=== PATIENT | female | born 1960 | race Caucasian/White ===

== ENCOUNTER 2016-09-09 11:22 | Emergency (ER) | payer MEDICARE, BC ==
[~2016-09-09] VITALS: Ht 172.7 cm; Wt 93.0 kg
[~2016-09-09 11:22] MED LIST: ASPI1TAB69 PO
[2016-09-09 11:25] VITALS: PULSE 203; RESP 20; TEMP 98.1; O2SAT 97
[2016-09-09 11:28] VITALS: BP 163/85; PULSE 185; RESP 30; TEMP 97.7; O2SAT 95
[2016-09-09] MEDS ORDERED: ADENOSINE IV SOLN 3 MG/ML 2 ML VIAL ONE ×2 (11:29→11:31)
[2016-09-09 11:41] VITALS: BP 163/85; PULSE 104; RESP 27; O2SAT 96
[2016-09-09] MEDS ORDERED: ASPI325T PO (11:43)
--- NOTE | 2016-09-09 11:43 | PD ---
HPI . Palpitations Chief Complaint: Cardiac Complaint Time Seen by Provider: 11:37 Travel History International Travel<30 days: No Contact w/Intl Traveler<30days: No History of Present Illness HPI Patient presents ambulatory with a 35 minute history of rapid heart rate. She states that it is associated with dizziness, nausea and shortness of breath. She reports a positive previous similar history was successfully treated with a single dose of adenosine. She has had no further episodes. Therefore, she is not maintained on a rate controlling medication. PFSH Past Medical History Anxiety: No Depression: No Heart Rhythm Problems: Yes Cancer: No Cardiovascular Problems: Yes (SVT) Diminished Hearing: No Endocrine: No Genitourinary: Yes (LMP 01/17/06) Immune Disorder: No Musculoskeletal: No Neurologic: No Psychiatric: Yes Reproductive: No Respiratory: No Pancreatitis: Yes (UNKOWN ETIOLOGY) Menopausal: Yes : 2 Para: 2 Tubal Ligation: Yes Past Surgical History Abdominal Surgery: Yes (RESECTION OF LIVER, CHOLISISECTOMY, ERCP) Cholecystectomy: Yes Other Surgery: Yes (LIVER RESECTION FOR TUMOR) Social History Alcohol Use: Yes (occasional) Tobacco Use: No Substance Use: No Allergies-Medications (Allergen,Severity, Reaction): Coded Allergies: Metoprolol (Verified Allergy, Severe, headache, 09/09/16) Ambien (Verified Allergy, Mild, ALTERED MENTAL STATUS, 09/09/16) Ativan (Verified Allergy, Mild, ALTERED MENTAL STATUS, 09/09/16) Nubain (Verified Allergy, Mild, ALTERED MENTAL STATUS, 09/09/16) Reported Meds & Prescriptions Reported Meds & Active Scripts Active Reported Aspirin 325 Mg Tab 325 Mg PO DAILY Review of Systems Except as stated in HPI: all other systems reviewed are Neg General / Constitutional: No: Fever, Chills HENT: Positive: Lightheadedness Cardiovascular: Positive: Chest Pain or Discomfort, Palpitations, Tachycardia Respiratory: Positive: Shortness of Breath Gastrointestinal: Positive: Nausea, No: Vomiting Physical Exam Narrative GENERAL: Somewhat anxious appearing woman who is awake and alert and fully oriented. SKIN: Warm and dry. HEAD: Atraumatic. Normocephalic. EYES: Pupils equal and round. ENT: No nasal bleeding or discharge. Mucous membranes pink and moist. NECK: Trachea midline. Neck is supple. CARDIOVASCULAR: Regular rhythm. Rapid rate at about 185. Narrow complex on the monitor. RESPIRATORY: No accessory muscle use. GASTROINTESTINAL: Abdomen soft, non-tender, nondistended. MUSCULOSKELETAL: No obvious deformities. No edema. NEUROLOGICAL: Awake and alert. No obvious cranial nerve deficits. Motor grossly within normal limits. Normal speech. PSYCHIATRIC: Appropriate mood and affect; insight and judgment normal. Data Data Last Documented VS Vital Signs Date Time Temp Pulse Resp B/P Pulse Ox O2 Delivery O2 Flow Rate FiO2 09/09/16 12:34 101 12 138/70 98 Nasal Cannula 2 09/09/16 11:28 97.7 Orders Adenosine Inj (Adenocard Inj) (09/09/16 11:29) Adenosine Inj (Adenocard Inj) (09/09/16 11:31) Basic Metabolic Panel (Bmp) (09/09/16 11:43) Ckmb (Isoenzyme) Profile (09/09/16 11:43) Complete Blood Count With Diff (09/09/16 11:43) Troponin I (09/09/16 11:43) Ecg Monitoring (09/09/16 11:43) Bilateral Bp Monitoring (09/09/16 11:43) Iv Access Insert/Monitor (09/09/16 11:43) Oximetry (09/09/16 11:43) Oxygen Administration (09/09/16 11:43) Sodium Chloride 0.9% Flush (Ns Flush) (09/09/16 11:45) Electrocardiogram (09/09/16 11:30) Electrocardiogram (09/09/16 11:33) CKMB (09/09/16 12:00) CKMB% (09/09/16 12:00) Labs Laboratory Tests Test 09/09/16 12:00 White Blood Count 10.2 TH/MM3 Red Blood Count 5.43 MIL/MM3 Hemoglobin 15.6 GM/DL Hematocrit 46.3 % Mean Corpuscular Volume 85.2 FL Mean Corpuscular Hemoglobin 28.7 PG Mean Corpuscular Hemoglobin 33.6 % Concent Red Cell Distribution Width 14.0 % Platelet Count 307 TH/MM3 Mean Platelet Volume 7.4 FL Neutrophils (%) (Auto) 53.6 % Lymphocytes (%) (Auto) 40.6 % Monocytes (%) (Auto) 4.2 % Eosinophils (%) (Auto) 0.6 % Basophils (%) (Auto) 1.0 % Neutrophils # (Auto) 5.5 TH/MM3 Lymphocytes # (Auto) 4.1 TH/MM3 Monocytes # (Auto) 0.4 TH/MM3 Eosinophils # (Auto) 0.1 TH/MM3 Basophils # (Auto) 0.1 TH/MM3 CBC Comment DIFF FINAL Differential Comment Sodium Level 137 MEQ/L Potassium Level 4.6 MEQ/L Chloride Level 106 MEQ/L Carbon Dioxide Level 20.3 MEQ/L Anion Gap 11 MEQ/L Blood Urea Nitrogen 10 MG/DL Creatinine 1.06 MG/DL Estimat Glomerular Filtration 53 ML/MIN Rate Random Glucose 250 MG/DL Calcium Level 8.9 MG/DL Total Creatine Kinase 103 U/L Creatine Kinase MB 0.8 NG/ML Troponin I LESS THAN 0.02 NG/ML MDM Medical Decision Making Medical Screen Exam Complete: Yes Emergency Medical Condition: Yes Interpretation(s) Initial EKG shows SVT at 194. Repeat EKG following chemical cardioversion showed a sinus rhythm with a ventricular rate of 115. She has some associated PACs. No ST segment elevation or depression. Differential Diagnosis Differential diagnosis of palpitations includes but is not limited to anxiety, SVT, aVF with RVR, VT, sinus tachycardia Narrative Course Patient presents with a rapid heart rate. Her rate was quickly controlled with a single dose of adenosine, 6 milligrams. CBC is remarkable for an H&H of 15.6 and 46.3. White blood count is normal at 10.2. Cardiac enzymes are negative. She has remained asymptomatic since she was converted with adenosine. Critical Care Narrative Aggregate critical care time was 30 minutes. Time to perform other separately billable procedures was not included in the critical care time. My time did not include minutes spent treating any other patients simultaneously or on activities that did not directly contribute to the patient's treatment. The services I provided to this patient were to treat and/or prevent clinically significant deterioration that could result in: Degeneration in her cardiac rhythm I provided critical care services requiring my management, as noted below: Chart data review, documentation time, medication orders and management, vital sign assessments/reviewing monitor data, ordering and reviewing lab tests, ordering and interpreting/reviewing x-rays and diagnostic studies, care of the patient and discussion of the patient with the admitting physicians. Diagnosis Primary Impression: SVT (supraventricular tachycardia) Referrals: Clement Maradiaga MD 1 week Patient Instructions: General Instructions, Supraventricular Tachycardia (ED) Disposition: 01 DISCHARGE HOME Condition: Stable Oeters,Randa Elsa MD Sep 09, 2016 11:43
[2016-09-09] MEDS ORDERED: SODIUM CHLORIDE 0.9% FLUSH 5 ML FLUSH IVF PRN (11:45)
[2016-09-09 12:14] LABS: AUTOMATED NEUTROPHIL # 5.5 TH/MM3 (1.8-7.7); BASOPHIL # 0.1 TH/MM3 (0-0.2); EOSINOPHIL # 0.1 TH/MM3 (0-0.4); EOSINOPHIL % 0.6 % (0.0-4.0); HEMATOCRIT 46.3 % (35.0-46.0); HEMO FLAGS DIFF FINAL; LYMPH % 40.6 % (9.0-44.0); LYMPHOCYTE # 4.1 TH/MM3 (1.0-4.8); MEAN CELL VOLUME 85.2 FL (80.0-100.0); MEAN CORPUSCULAR HEMOGLOBIN 28.7 PG (27.0-34.0); MEAN CORPUSCULAR HGB CONC 33.6 % (32.0-36.0); MONO % 4.2 % (0.0-8.0); NEUT % 53.6 % (16.0-70.0); PLATELET COUNT 307 TH/MM3 (150-450); RED BLOOD COUNT 5.43 MIL/MM3 (4.00-5.30); WHITE BLOOD COUNT 10.2 TH/MM3 (4.0-11.0)
[2016-09-09 12:34] VITALS: BP 138/70; PULSE 101; RESP 12; O2SAT 98
[2016-09-09 12:37] LABS: ANION GAP 11 MEQ/L (5-15); BICARBONATE 20.3 MEQ/L (21.0-32.0); BLOOD UREA NITROGEN 10 MG/DL (7-18); CHLORIDE 106 MEQ/L (98-107); CREATINE KINASE 103 U/L (26-192); GLOMERULAR FILTRATION RATE 53 ML/MIN (>89); SODIUM (NA) 137 MEQ/L (136-145)
[2016-09-09 12:39] LABS: POTASSIUM 4.6 MEQ/L (3.5-5.1)
[2016-09-09 12:57] LABS: CKMB 0.8 NG/ML (0.5-3.6)
--- NOTE | 2016-09-09 17:34 | EKG ---
Date Performed: 09/09/2016 Time Performed: 11:30:59 PTAGE: 56 years EKG: SUPRAVENTRICULAR TACHYCARDIA NONSPECIFIC ST & T-WAVE ABNORMALITY When compared to previous tracing, supraventricular tachycardia Has replaced Sinus rhythm . Likely rate related ST changes are new. ABNORMAL ECG PREVIOUS TRACING : 03/03/2016 07.34 DOCTOR: Maximo Espinosa Interpretating Date/Time 09/09/2016 17:33:21
--- NOTE | 2016-09-09 17:40 | EKG ---
Date Performed: 09/09/2016 Time Performed: 11:33:03 PTAGE: 56 years EKG: SINUS TACHYCARDIA WITH FREQUENT SUPRAVENTRICULAR PREMATURE COMPLEXES NONSPECIFIC T-WAVE ABN ORMALITY Rhythm does appear to be sinus tachycardia with surface ectopy Though also baseline artifact , given previous EKG's Supraventricular tachycardia would recomment repeat EKG with a Lead Manufacturing Technician baseli ne to exclude atrial fibrillation. Also noted was electro cardioversion which took place between This tracing and the previous tracing. ABNORMAL ECG PREVIOUS TRACING : 09/09/2016 11.30.59 DOCTOR: Maximo Espinosa Interpretating Date/Time 09/09/2016 17:39:51
== END 2016-09-09 13:31 | disposition home or self-care (01) ==
LOC: NEPA 11:22
DX: I47.1 Supraventricular tachycardia (principal); R06.02 Shortness of breath; R42 Dizziness and giddiness
CPT/HCPCS: 80048; 82550; 82552; 84484; 85025; 93005; 96374; 99291; J0153

== ENCOUNTER → 2017-07-13 | Outpatient (CLI) | payer MEDICARE, BC ==
[~2017-07-13] MED LIST changes: +ASPI-183 PO; -ASPI1TAB69 PO
[2017-07-13 09:50] LABS: AUTOMATED NEUTROPHIL # 3.8 TH/MM3 (1.8-7.7); BASOPHIL % 0.6 % (0.0-2.0); EOSINOPHIL # 0.1 TH/MM3 (0-0.4); EOSINOPHIL % 1.2 % (0.0-4.0); HEMATOCRIT 42.8 % (35.0-46.0); HEMO FLAGS DIFF FINAL; LYMPH % 34.6 % (9.0-44.0); LYMPHOCYTE # 2.4 TH/MM3 (1.0-4.8); MEAN CELL VOLUME 86.2 FL (80.0-100.0); MEAN CORPUSCULAR HEMOGLOBIN 28.9 PG (27.0-34.0); MEAN CORPUSCULAR HGB CONC 33.6 % (32.0-36.0); MONO % 7.8 % (0.0-8.0); NEUT % 55.8 % (16.0-70.0); PLATELET COUNT 239 TH/MM3 (150-450); RED BLOOD COUNT 4.97 MIL/MM3 (4.00-5.30); RED CELL DISTRIBUTION WIDTH 14.4 % (11.6-17.2); WHITE BLOOD COUNT 6.8 TH/MM3 (4.0-11.0)
[2017-07-13 10:09] LABS: ALT (GPT) 35 U/L (10-53); ANION GAP 5 MEQ/L (5-15); AST (GOT) 23 U/L (15-37); BICARBONATE 27.2 MEQ/L (21.0-32.0); BLOOD UREA NITROGEN 13 MG/DL (7-18); CHLORIDE 106 MEQ/L (98-107); GLOMERULAR FILTRATION RATE 60 ML/MIN (>89); GLUCOSE,FASTING 104 MG/DL (74-99); POTASSIUM 4.2 MEQ/L (3.5-5.1); SODIUM (NA) 138 MEQ/L (136-145)
[2017-07-13 10:11] LABS: ALKALINE PHOSPHATASE 104 U/L (45-117); TOTAL BILIRUBIN ADULT 0.5 MG/DL (0.2-1.0)
[2017-07-13 12:41] LABS: HDL CHOLESTEROL 37.9 MG/DL (40.0-60.0); LDL CHOLESTEROL 95 MG/DL (0-99)
== END ==
LOC: CLAB 08:55
DX: K86.1 Other chronic pancreatitis (principal); I49.8 Other specified cardiac arrhythmias; N29 Other disorders of kidney and ureter in diseases classified elsewhere
CPT/HCPCS: 36415; 80053; 80061; 84443; 85025

== ENCOUNTER → 2017-07-18 | Outpatient (CLI) | payer MEDICARE ==
[2017-07-18 11:15] LABS: CREAT 24 TIMED 53.5 MG/DL
== END ==
LOC: CLAB 08:46
PROVIDERS: ATTEND Student in an Organized Health Care Education/Training Program
DX: N29 Other disorders of kidney and ureter in diseases classified elsewhere (principal); Z13.220 Encounter for screening for lipoid disorders
CPT/HCPCS: 36415; 82575